=== PATIENT | female | born 1950 | race Caucasian/White ===

== ENCOUNTER 2018-06-20 07:24 | Outpatient (CLI) | payer OTHER, SELFPAY ==
[2018-06-20 08:41] LABS: ALT 48 U/L (12-78); AST 31 U/L (15-37); Albumin 3.5 g/dL (3.4-5.0); Alkaline Phosphatase 113 U/L (46-116); Anion Gap 6.2 mmol/L (3-11); BUN 12 mg/dL (7-18); Bilirubin, Total 0.7 mg/dL (0.2-1.0); CO2 29.8 mmol/L (21.0-32.0); CREATININE 0.91 mg/dL (0.55-1.02); Calcium 8.5 mg/dL (8.5-10.1); Chloride 106 mmol/L (98-107); Glucose 95 mg/dL (70-100); Sodium 142 mmol/L (136-145); TSH (W/Ref FT4) 1.83 uIU/mL (0.358-3.74); Total Protein 7.5 g/dL (6.4-8.2)
== END 2018-06-20 07:44 ==
PROVIDERS: PCP Family Medicine; Visit Provider Family Medicine
DX: E03.9 Hypothyroidism, unspecified (principal); I10 Essential (primary) hypertension
CPT/HCPCS: 36415; 80053; 84443

== ENCOUNTER 2019-02-27 01:12 | Outpatient (CLI) | payer OTHER, SELFPAY ==
[2019-02-27 11:13] LABS: ALT 57 U/L (12-78); AST 31 U/L (15-37); Albumin 3.7 g/dL (3.4-5.0); Alkaline Phosphatase 118 U/L (46-116); BUN 15 mg/dL (7-18); Bilirubin, Total 0.6 mg/dL (0.2-1.0); Calcium 9.4 mg/dL (8.5-10.1); Chloride 104 mmol/L (98-107); Cholesterol 159 mg/dL (50-200); Glucose 92 mg/dL (70-100); HDL Cholesterol 39 mg/dL (40-60); LDL CHOLESTEROL 95 mg/dL (<100); Potassium 4.5 mmol/L (3.5-5.1); Sodium 144 mmol/L (136-145); TSH (W/Ref FT4) 2.91 uIU/mL (0.358-3.74); Total Protein 7.7 g/dL (6.4-8.2); Triglyceride 104 mg/dL (30-150)
[2019-03-01 00:41] LABS: B.burgdorferi PCR, B Negative (Negative); B.garinii/B.afzelii PCR,B Negative (Negative); B.mayonii PCR, B Negative (Negative)
[2019-03-01 06:22] LABS: Vitamin D 25 Total 33.3 ng/ml (30-100)
== END 2019-02-27 01:32 ==
PROVIDERS: PCP Family Medicine; Visit Provider Family Medicine
DX: E03.9 Hypothyroidism, unspecified (principal); I10 Essential (primary) hypertension; M25.50 Pain in unspecified joint
CPT/HCPCS: 36415; 80053; 80061; 82306; 83721; 87476; 87798; 84443

== ENCOUNTER 2019-05-24 14:43 | Outpatient (CLI) | payer OTHER, SELFPAY ==
--- NOTE | 2019-05-24 14:00 | DI.RAD_ITS ---
SYMPTOMS/DIAGNOSIS: RT KNEE PAIN, LT AND RIGHT HIP PAIN, M25.552 RIGHT KNEE: Four views were obtained. The bones and soft tissues appear normal. BILATERAL HIPS AND PELVIS: Six views were obtained. The cartilaginous joint spaces of both hips appear minimally narrowed superiorly. There is mild hypertrophic spurring of the greater trochanters of both femurs. Otherwise the bones appear intact except for minimal hypertrophic spurring of the femoral heads and acetabula. CONCLUSION: Mild DJD both hips.
== END 2019-05-24 15:03 ==
PROVIDERS: PCP Family Medicine; Visit Provider Family Medicine
DX: M25.552 Pain in left hip (principal); M25.561 Pain in right knee; M25.551 Pain in right hip; M16.0 Bilateral primary osteoarthritis of hip
CPT/HCPCS: 73521; 73564